=== PATIENT | male | born 1965 | race Caucasian/White ===

== ENCOUNTER → 2023-09-09 10:42 | Outpatient (BNVA) | payer BC, SELFPAY | PROVIDERS: Family Provider Family Medicine; PCP Family Medicine; Visit Provider Family Medicine | DX: Z51.81 Encounter for therapeutic drug level monitoring (principal); Z13.220 Encounter for screening for lipoid disorders; R53.81 Other malaise; R53.83 Other fatigue | CPT/HCPCS: 80053; 80061; 84403; 84439; 84443; 85025 ==

== ENCOUNTER → 2024-07-24 13:14 | Outpatient (BNVA) | payer BC, SELFPAY | PROVIDERS: Family Provider Family Medicine; PCP Family Medicine; Visit Provider Family Medicine | DX: R35.0 Frequency of micturition (principal); H53.139 Sudden visual loss, unspecified eye; Z51.81 Encounter for therapeutic drug level monitoring | CPT/HCPCS: 80053; 84153; 85025; 85651 ==

== ENCOUNTER 2024-08-13 14:01 | Outpatient (CLI) | payer BC, SELFPAY ==
--- NOTE | 2024-08-13 14:15 | USCV_ITS ---
Errol, Paul ([facility]) Age: 59 Gender: M : 1965 Exam Date: 08/13/2024 14:17 Ordering Phys: Art Reza MD Technologist: Exam [facility] Indication: tia BP: 120 / 70 HR: 79 Rhythm: Sinus Technical Quality: Adequate MEASUREMENTS (Male / Female) Normal Values 2D ECHO LV Diastolic Diameter PLAX 4.6 cm 4.2 - 5.9 / 3.9 - 5.3 cm IVS Diastolic Thickness 1.2 cm 0.6 - 1.0 / 0.6 - 0.9 cm IVS Systolic Thickness 1.6 cm LVPW Diastolic Thickness 1.3 cm 0.6 - 1.0 / 0.6 - 0.9 cm LVPW Systolic Thickness 1.9 cm LVOT Diameter 2.0 cm LV Ejection Fraction 2D Teich 37.2 % LV Ejection Fraction MOD 4C 67.3 % LV Ejection Fraction MOD 2C 64.8 % LV Ejection Fraction 2C AL 66.3 % LA Diameter 3.2 cm RA Systolic Volume 4C AL 41.7 ml RA Systolic Volume 4C MOD 40.8 ml Aorta at Sinotubular Diameter 2.8 cm IVC Diameter 2.4 cm M-MODE LA Ao Ratio MM 1.3 AV Cusp Separation MM 2.8 cm DOPPLER AV Peak Velocity 146.0 cm/s LVOT Peak Velocity 107.0 cm/s AV Area Cont Eq vti 2.9 cm squared AV Area Cont Eq pk 2.3 cm squared MV Peak Velocity 101.0 cm/s MV Area PHT 6.7 cm squared Mitral E to A Ratio 0.8 TV Peak Velocity 150.0 cm/s TR Peak Velocity 162.0 cm/s TR Peak Gradient 10.5 mmHg TV Peak E Velocity 84.0 cm/s FINDINGS Left Ventricle Left ventricle is normal in size. LV systolic fucntion is normal with EF of 55-60%. No regional wall motion abnromalities. Right Ventricle Normal in size and function Right Atrium Normal in size Left Atrium Normal in size Mitral Valve Structurally normal mitral valve. Mild mitral regurgitation. Aortic Valve Structurally normal aortic valve. No significant stenosis or regurgitation. Tricuspid Valve Insufficient TR jet to calculate RVSP Pulmonic Valve Not well visualized Pericardium Normal Aorta Normal in size IVC Appears to be normal CONCLUSIONS LV systolic function is normal with EF of 55-60% Mild mitral regurgitation No comparison studies are available. Garrett Boggs MD (Electronically Signed) Final Date: 25 August 2024 21:19 S
== END 2024-08-13 14:02 | disposition home or self-care (01) ==
PROVIDERS: PCP Family Medicine; Visit Provider Family Medicine
DX: G45.9 Transient cerebral ischemic attack, unspecified (principal); I34.0 Nonrheumatic mitral (valve) insufficiency
CPT/HCPCS: 80053; 84153; 85025; 85651; 93306

== ENCOUNTER 2025-02-07 16:45 | Emergency (ER) | payer BC, SELFPAY ==
--- OUTSIDE RECORDS SUMMARY | 2024-04-14 04:00 | XMS_ITS ---
Author Organization [facility] Address [address] [place] [address] Support Name Relationship Address , Bettye Errol Emergency Contact [address] [place] [phone] Unavailable Juan Jacobson Guarantor Unknown [phone] Care Team Providers Care Picking Crew Supervisor Name Role Phone Keny Vargas MD Primary Care Provider Cristiane Youssef Unavailable [phone] Migration, Provider Unavailable Unavailable REASON FOR VISIT EMR-Tin Encounters Encounter Location Date Provider Diagnosis Migrated_Facility 0 0 04/14/2024 Provider Migration Plan Of Treatment Medication Medication Name Sig Start Date Stop Date Notes oxyCODONE-Acetaminophen 10-325 MG Oral Tablet 1 Tablet Every 6 Hours PRN 04/02/2022 05/02/2022 [facility]* Morphine Sulfate 15 MG Tablet 1 Tablet Every 6 Hours PRN Oral 10/23/2020 11/22/2020 Cyclobenzaprine HCl 10 MG Tablet 1 Tablet Every Night PRN Oral 03/29/2022 04/28/2022 HYDROcodone-Acetaminophen 10-325 MG Oral Tablet 1 Tablet Every 6 Hours PRN 06/10/2021 07/10/2021 [facility]* tiZANidine HCl 4 MG Tablet 1 Three times a Day PRN Oral 11/28/2019 12/28/2019 Cialis 5 MG Tablet 1 Tablet As needed PRN Oral 03/29/2022 04/28/2022 Baclofen 10 MG Tablet 1 Tablet Four times a Day PRN Oral 11/28/2019 12/28/2019 Butrans 10 mcg/hour transdermal patch weekly 1 Patch Every week 04/02/2022 04/30/2022 *Reorder from [facility] for eRx and Interaction Alerts* Progress Notes * Juan JACOBSONDOB:1965 (60 yo M)Acc No.[id number]:04/14/2024 Patient: Jaun DALLAS :1965 A ge:59 Y S ex:Male Address:[address] [place] [address] [address] , [place] [phone] * Refills Stop Baclofen Tablet, 10 MG, Oral, 1 Tablet Four times a Day PRN Stop Cialis Tablet, 5 MG, Oral, 1 Tablet As needed PRN Stop Cyclobenzaprine HCl Tablet, 10 MG, Oral, 1 Tablet Every Night PRN Stop Morphine Sulfate Tablet, 15 MG, Oral, 1 Tablet Every 6 Hours PRN Stop tiZANidine HCl Tablet, 4 MG, Oral, 1 Three times a Day PRN Stop HYDROcodone-Acetaminophen 10-325 MG Oral Tablet, 1 Tablet Every 6 Hours PRN Stop oxyCODONE-Acetaminophen 10-325 MG Oral Tablet, 1 Tablet Every 6 Hours PRN Stop Butrans 10 mcg/hour transdermal patch weekly, 1 Patch Every week Subjective: * Chief Complaints: * E MR-Tin * * Date:
--- OUTSIDE RECORDS SUMMARY | 2024-04-15 04:00 | XMS_ITS ---
Author Organization [facility] Address [address] [place] [address] Support Name Relationship Address , Bettye Errol Emergency Contact [address] [place] [phone] Unavailable Juan Jacobson Guarantor Unknown [phone] Care Team Providers Care Associate Professor Of Biblical Studies Name Role Phone Keny Vargas MD Primary Care Provider Cristiane Youssef Unavailable [phone] Migration, Provider Unavailable Unavailable Allergies Allergen (clinical drug ingredient) Drug/Non Drug Allergy documented on EMR Reaction Allergy Type Onset Date Status Information temporarily unavailable Ultram Unknown Drug Allergy Active Information temporarily unavailable Tramadol headache Drug Allergy Active Information temporarily unavailable Wellbutrin Unknown Drug Allergy Active REASON FOR VISIT EMR-Tin Medications Medication SIG (Take, Route, Frequency, Duration) Notes Start Date End Date Status duloxetine *[facility] and Interaction Alerts* Active Simvastatin *Pick strength-f orm from [facility] for eRX* Active trazodone *[facility]Rx and Interaction Alerts* Active Social History Social History Additional Details Category Social Info Options Details Migrated Social History Migrated Social History Alcoholic beverages? - No, Currently on disability? - No, I am interested in quitting. - No, Smoking - 2 PPD, Smoking status (MU) - Current every day smoker, Working currently? - Yes Encounters Encounter Location Date Provider Diagnosis Migrated_Facility 0 0 04/15/2024 Provider Migration Plan Of Treatment No Information Progress Notes * Juan JACOBSONDOB:1965 (60 yo M)Acc No.[id number]:04/15/2024 Patient: Cordelia GREENJuan WHEELER :1965 A ge:59 Y S ex:Male Address:[address] [place] [address] [address] , [place] [address] Subjective: * Chief Complaints: * E MR-Tin * Medical History: Kidney stone, * Surgical History: Carpal tunnel surgery Elbow surgery Shoulder surgery * Family History: M igrated Family History: : Cancer. * Social History: M igrated Social History: M igrated Social History: Alcoholic beverages? - No, C urrently on disability? - No, I am interested in quitting. - No, S moking - 2 PPD, S moking status (MU) - Current every day smoker, W orking currently? - Yes. * Medications: T akingtrazodone , Notes to Pharmacist: *Reorder from [facility] for eRx and Interaction Alerts*Simvastatin , Notes to Pharmacist: *Pick strength-form from [facility] for eRX*duloxetine , Notes to Pharmacist: *Reorder from [facility] for eRx and Interaction Alerts*Taking trazodone , Notes to Pharmacist: *Reorder from [facility] for eRx and Interaction Alerts*Taking Simvastatin , Notes to Pharmacist: *Pick strength-form from [facility] for eRX*Taking duloxetine , Notes to Pharmacist: *Reorder from [facility] for eRx and Interaction Alerts* * Allergies: T ramadol: headache - AllergyWellbutrin: AllergyUltram: Allergy * * Date:
--- NOTE | 2025-02-07 16:25 | ECG_ITS ---
[facility] [employer] [facility] Test Date: 2025-02-07 Pat Name: Juan Norton (Lance) Department: Room: Gender: Male Guard Chief: : 1965 Requested By: Tariq Tinajero Order Number: [id number] Lisa MD: Garrett Boggs M.D. Measurements Intervals [place] Rate: 62 P: 84 VT: 164 QRS: 65 QRSD: 105 T: 42 QT: 387 QTc: 396 Interpretive Statements SINUS RHYTHM POSSIBLE LEFT ATRIAL ENLARGEMENT [-0.1mV P-WAVE IN V1/V2] No previous ECG available for comparison Electronically Signed On 02-09-2025 08:44:49 CDT by Garrett Boggs M.D. [email or web address] [id number]
--- NOTE | 2025-02-07 16:25 | CTR_ITS ---
THIS REPORT CONTAINS FINDINGS THAT MAY BE CRITICAL TO PATIENT CARE. The findings were verbally communicated by me to DR. MEENA GUIDRY via telephone conference at 4:52 PM CDT on 02/07/2025. The findings were acknowledged and understood. PROCEDURE INFORMATION: Exam: CT Head Without Contrast Exam date and time: 02/07/2025 4:31 PM Age: 60 years old Clinical indication: Stroke-like symptoms; Other: Weakness on left side; Additional info: Symptoms of acute stroke TECHNIQUE: Imaging protocol: Computed tomography of the head without contrast. Radiation optimization: All CT scans at this facility use at least one of these dose optimization techniques: automated exposure control; mA and/or kV adjustment per patient size (includes targeted exams where dose is matched to clinical indication); or iterative reconstruction. Other technique: STROKE PROTOCOL was implemented. COMPARISON: No relevant prior studies available. RADIATION DOSE METRICS: Total DLP (mGy-cm): 1166.58 FINDINGS: Brain: Mild loss of right insular hurtado-white matter distinction. Focal loss of hurtado-white matter differentiation right middle frontal gyrus (series 14, image 34; series 13, image 45). No intracranial hemorrhage. No shift of midline structures. No mass. Ventricles: No hydrocephalus or evidence of increased intracranial pressure. Paranasal sinuses: Visualized sinuses are unremarkable. No fluid levels. Mastoid air cells: Visualized mastoid air cells are well aerated. Bones: Unremarkable. No acute fracture. Soft tissues: Unremarkable. Vasculature: Hyperdense right MCA M1 segment (series 5, images 18-21). CT/CT head thrombolytic 23823 IMPRESSION: 1. Right MCA M1 segment intraluminal thrombus. 2. Acute right insular cortical infarction. ASSESSMENT: ASPECTS ([place] Stroke Program Early CT Score) is 8.
[2025-02-07 16:37] VITALS: BP 118/83; PULSE 67; RESP 16; TEMP 37.1; O2SAT 97; BMI 22.7
--- NOTE | 2025-02-07 16:40 | ED_ITS ---
HPI - Neuro Symptoms/Deficit 2 General: Chief Complaint: Neuro Symptoms/Deficit Stated Complaint: stroke alert History of Present Illness: 60-year-old male presents to the emergen cy room via EMS. Patient is flaccid on the left side he has sudden loss of function and speech at 1550 witnessed by coworkers. 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 EMS brought the patient to the emergency room on arrival he is obviously flaccid on the left side they first met the patient in the CT suite. Associated symptoms: Reports chest pain Related Data Home Medications ?Medication ?Instructions ?Recorded ?Confirmed trazodone 50 mg tablet 50 mg PO DAILY 05/04/2201/18 Held on 01/12/24. Instructions: Adverse Reaction Previous Rx's ?Medication ?Instructions ?Recorded tadalafil 20 mg tablet 20 mg PO DAILY PRN sexual ac tivity 01/12/24 #10 tabs aspirin 81 mg tablet,delayed 81 mg PO DAILY #30 tabs 0 07/24/24 release buspirone 5 mg tablet 5 mg PO BID #60 tabs 5 citalopram 20 mg tablet 20 mg PO DAILY #30 tabs 01/18 03/14 Allergies Allergy/AdvReac Type Severity Reaction Status Date / Time bupropion (From Wellbutrin) Allergy ALGY-Hives Verified 05/04/22 16:09 Review of Systems 2 Card: Reports: chest pain Resp: Reports: dyspnea GI: Reports: abdominal pain PFS ED 2 PFSH: Surgical History History of skin graft Bilateral legs - 2012 History of shoulder surgery History of carpal tunnel release Bilaterally History of lithotripsy Mendoza - 2014 History of lumbar surgery L4-L5-S1 fusion - 06/08 - Janusz Social History Smoking and tobacco/nicotine status: current every day tobacco/nicotine user cigarettes Packs smoked per day: 1 [ Other cigarette details: Just under a ppd] NIH stroke score 2 NIHSS: Level Of Consciousness - 1a: 2 Level Of Consciousness Questions - 1b: Both Correct Level Of Consciousness Commands - 1c: Both Correct Best Gaze - 2: Forced Deviation Visual [place] - 3: Complete Hemianopia Facial Palsy - 4: Minor Paralysis Motor Arm Right - 5: No Drift Motor Arm Left - 5: No Effort Against [place] Motor Leg Right - 6: No Drift Motor Leg Left - 6: No Effort Against [place] Limb Ataxia - 7: Present In Two Limbs S ensory - 8: Mild To Moderate Loss Best Language - 9: No Aphasia Dysarthia - 10: Mild/Moderate Dysarthia Extinction And Inattention - 11: 2 Score: Total Score: 19 Physical Exam 2 Const: GENERAL APPEARANCE: cooperative ORIENTATION/CONSCIOUSNESS: Yes awake HENMT: COMMON NORMALS: normocephalic, atraumatic and hearing grossly normal bilaterally HEAD & SCALP: normocephalic and atraumatic Resp: COMMON NORMALS: normal respiratory effort, No retractions, No use of accessory muscles and clear to auscultation bilaterally AUSCULTATION: clear to auscultation bilaterally Cardio: COMMON NORMALS: regular rate, regular rhythm and No murmurs present (Cardio) RATE: regular rate RHYTHM: regular rhythm GI: COMMON NORMALS: Soft to palpation and No hepatosplenomegaly present A USCULTATION: Yes normoactive bowel sounds PALPATION: Yes Soft to palpation, No Tenderness to palpation present (GI), No Guarding due to palpation present (GI) and Yes No hepatosplenomegaly present Extremity: COMMON NORMALS: normal to inspection, capillary refill normal, no clubbing, cyanosis or edema, no calf tenderness and no pedal edema Neuro: OTHER: See NIH scoring Course 2 Vital Signs: Vital signs: Vital Signs Temperature 98.8 F 02/07/25 16:59 Pulse Rate 70 02/07/25 18:07 Respiratory Rate 17 02/07/25 18:05 Blood Pressure 151/80 02/07/25 18:07 Pulse Oximetry 97 02/07/25 18:07 Oxygen Delivery Me thod Room Air 02/07/25 18:05 MDM - Neuro Symptoms/Deficit Medical Decision Making Patient has an NIH of 19 no bleed on the CT discussed risks and benefits with the patient he wishes to proceed TNKase given. The initial CT without contrast shows a right MCA a M1 segment thrombus. CTA head and neck being done at the time of this dictation. Anticipate transfer to higher level of care for possible embolectomy. Patient has already had significant improvement he now has function in his left arm and leg although they are still weak he still has his forced gaze deviation and hemianopsia. His speech is improved he still has a facial droop and still has significant extinction. We have consulted Dr. Waters who is on-call for stroke at [facility] they have accepted the patient [facility] will be transferring. He is stable at this time. CTA showed ulcerated plaque with suspected thrombus in the right carotid Interestingly he has been having intermittent vision changes and he had been receiving a outpatient workup from his primary care doctor. He is taking aspirin daily but is not on any statin or Plavix. Medical Records I reviewed the patient's medical records. Lab Data I reviewed the patient's lab results. 02/07/25 16:16 02/07/25 16:[address] 02/07/25 16:25 IMPRESSION: 1. Right MCA M1 segment intraluminal thrombus. 2. Acute right insular cortical infarction. ASSESSMENT: ASPECTS ([place] Stroke Program Early CT Score) is 8. Head/Neck CTA 02/07/25 16:43 IMPRESSION: 1. Right MCA M1 segment occlusion, with proximal M2 branch reconstitution, reduced peripheral collateral filling. 2. Right MCA territory edema consistent with infarction or reperfusion edema (tPA given, with reportedly good clinical response). ASSESSMENT: ASPECTS ([place] Stroke Program Early CT Score) is 3 (please see above comment). IMPRESSION: 1. Near completely occlusive intraluminal thrombus in the proximal right internal carotid artery. 2. Moderate stenosis left vertebral artery origin. 3. Soft tissue enhancing nodule posterior right thyroid gland. Soccer candle nodule versus ectopic thyroid versus parathyroid lesion. Follow-up recommended. COMMENTS: Consistent with the [place] [employer]'s Incidental Findings Committee white paper (J Am Star Radiol 2015): In patients aged 35 years and older with an incidental thyroid nodule equal to or greater than 1.[address], MRI or extrathyroidal US, further evaluation with dedicated thyroid US is recommended for patients with normal life expectancy and without comorbidities. For smaller nodules without suspicious features, no further evaluation or follow up is recommended. REFERENCES: NASCET CRITERIA. The degree of stenosis in the cervical segment of the internal carotid artery is based on NASCET criteria. Normal is no stenosis. Mild is less than 50% stenosis. Moderate is 50-69% stenosis. Severe is 70% to 99% stenosis. Total occlusion is no detectable patent lumen. Laboratory Results WBC 16.95 10^3/uL (3.29-11.43) H 02/07/25 16:16 RBC 4.63 10^6/uL (3.85-5.65) 02/07/25 16:16 Hgb 14.40 g/dL (11.27-16.99) 02/07/25 16:16 Hct 42.6 % (37-53) 02/07/25 16:16 MCV 92.0 fl (82-101) 02/07/25 16:16 MCH 31.1 pg (27-33) 02/07/25 16:16 MCHC 33.8 g/dL (30-55) 02/07/25 16:16 RDW 13.2 % (12.1-15.1) 02/07/25 16:16 Plt Count 318 10^3/cmm (157-399) 02/07/25 16:16 MPV 9.6 fL (7.4-10.4) 02/07/25 16:16 Neut % (Auto) 83.7 % 02/07/25 16:16 Lymph % (Auto) 10.9 % 02/07/25 16:16 [place] % (Auto) 4.5 % 02/07/25 16:16 Eos % (Auto) 0.2 % 02/07/25 16:16 Baso % (Auto) 0.2 % 02/07/25 16:16 Neut # (Auto) 14.19 10^3/uL (1.8-7.7) H 02/07/25 16:16 Lymph # (Auto) 1.8 10^3/uL (0.8-4.8) 02/07/25 16:16 [place] # (Auto) 0.8 10^3/uL (0.2-0.9) 02/07/25 16:16 Eos # (Auto) 0.0 10^3/uL (0.0-0.8) 02/07/25 16:16 Baso # (Auto) 0.0 10^3/uL (0.0-0.1) 02/07/25 16:16 Nucleated RBC % (auto) 0 % 02/07/25 16:16 Nucleated RBCs # 0.0 /100WBC 02/07/25 16:16 PT 12.60 SECONDS (12.1-14.9) 02/07/25 16:16 INR 0.89 (0.8-1.2) 02/07/25 16:16 APTT 28.6 SECONDS (23.9-36.7) 02/07/25 16:16 Sodium 140 mmol/L (136-145) 02/07/25 16:16 Potassium 3.7 mmol/L (3.5-5.1) 02/07/25 16:16 Chloride 103 mmol/L (98-107) 02/07/25 16:16 Carbon Dioxide 22 mmol/L (22-29) 02/07/25 16:16 Anion Gap 18.7 (5-19) 02/07/25 16:16 BUN 18 mg/dL (6-20) 02/07/25 16:16 Creatinine 2.3 mg/dL (0.7-1.2) H 02/07/25 16:16 GFR Calculation 29.4 mL/min (90-130) L 02/07/25 16:16 Glucose 97 mg/dL (65-115) 02/07/25 16:16 POC Glucose 102 mg/dL (70-110) 02/07/25 17:04 Calculated Osmolality 292 mOsm/kg (285-295) 02/07/25 16:16 Calcium 11.7 mg/dL (8.5-10.5) H 02/07/25 16:16 Total Bilirubin 0.7 mg/dL (0.15-1.2) 02/07/25 16:16 AST 16 U/L (0-40) 02/07/25 16:16 ALT 10 U/L (0-41) 02/07/25 16:16 Alkaline Phosphatase 95 U/L (40-130) 02/07/25 16:16 Total Protein 7.5 g/dL (6.6-8.7) 02/07/25 16:16 Albumin 4.6 g/dL (3.5-5.2) 02/07/25 16:16 Globulin 2.9 g/dL (1.3-4.6) 02/07/25 16:16 All radiology interpretation(s) finalized by discharge Discharge Plan Discharge Patient Disposition: Xfer Short-Term Hosp Clinical Impression: Acute cerebrovascular accident (CVA) due to embolism of right middle cerebral artery Condition: Stable Referrals: Art Reza MD [Primary Care Provider, Family Practice] Print Language: Israeli Coding Level of Care Code ED Air Conditioning Installer for Evelyn Martins
[2025-02-07] MEDS: tenecteplase 50mg Kit (STROKE) 50 MG (16:41)
--- NOTE | 2025-02-07 16:43 | CTR_ITS ---
THIS REPORT CONTAINS FINDINGS THAT MAY BE CRITICAL TO PATIENT CARE. The findings were verbally communicated by me to DR. MEENA GUIDRY via telephone conference at 5:32 PM CDT on 02/07/2025. The findings were acknowledged and understood. PROCEDURE INFORMATION: Exam: CTA Head With Contrast, Arteriography Exam date and time: 02/07/2025 4:48 PM Age: 60 years old Clinical indication: Other: Left side weakness; Additional info: Acute CVA TECHNIQUE: Imaging protocol: Computed tomographic angiography of the head with contrast. Exam focused on the arteries. 3D rendering (Not supervised by radiologist): MIP and/or 3D reconstructed images were created by the technologist. Radiation optimization: All CT scans at this facility use at least one of these dose optimization techniques: automated exposure control; mA and/or kV adjustment per patient size (includes targeted exams where dose is matched to clinical indication); or iterative reconstruction. Contrast material: OMNI 350; Contrast volume: 100 ml; Contrast route: INTRAVENOUS (IV); COMPARISON: CT head thrombolytic [id number] 02/07/2025 4:31 PM RADIATION DOSE METRICS: Total DLP (mGy-cm): 556.77 FINDINGS: ANTERIOR CIRCULATION: Right internal carotid artery: Intracranial segment is patent with no significant stenosis. No aneurysm. Right middle cerebral artery: Right MCA M1 segment occlusion, with proximal M2 branch reconstitution. Right anterior cerebral artery: No occlusion or significant stenosis. No aneurysm. Left internal carotid artery: Intracranial segment is patent with no significant stenosis. No aneurysm. Left middle cerebral artery: No occlusion or significant stenosis. No aneurysm. Left anterior cerebral artery: No occlusion or significant stenosis. No aneurysm. POSTERIOR CIRCULATION: Right vertebral artery: No occlusion or significant stenosis. No aneurysm. Left vertebral artery: No occlusion or significant stenosis. No aneurysm. Basilar artery: No occlusion or significant stenosis. No aneurysm. Right posterior cerebral artery: No occlusion or significant stenosis. No aneurysm. Left posterior cerebral artery: No occlusion or significant stenosis. No aneurysm. Brain: Increased cytotoxic edema in the right cerebral hemisphere, now involving the caudate head, putamen, anterior limb internal capsule, entire insula, and overlying cortex Ventricles: No hydrocephalus. Paranasal sinuses: Mild bilateral maxillary sinus mucosal thickening. Bones/joints: No acute abnormality. No acute fracture. Soft tissues: Unremarkable. PROCEDURE INFORMATION: Exam: CTA Neck With Contrast Exam date and time: 02/07/2025 4:48 PM Age: 60 years old Clinical indication: Other: Left side weakness; Additional info: Acute CVA TECHNIQUE: Imaging protocol: Computed tomographic angiography of the neck with contrast. Exam focused on the cervical segments of the vasculature. 3D rendering (Not supervised by radiologist): MIP reconstructed images were created by the technologist. Radiation optimization: All CT scans at this facility use at least one of these dose optimization techniques: automated exposure control; mA and/or kV adjustment per patient size (includes targeted exams where dose is matched to clinical indication); or iterative reconstruction. Contrast material: OMNI 350; Contrast volume: 100 ml; Contrast route: INTRAVENOUS (IV); COMPARISON: CT head thrombolytic [id number] 02/07/2025 4:31 PM RADIATION DOSE METRICS: Total DLP (mGy-cm): 556.77 FINDINGS: Right common carotid artery: No stenosis. No dissection or occlusion. Right internal carotid artery: Near completely occlusive intraluminal filling defect in the proximal right internal carotid artery. Right external carotid artery: No occlusion or stenosis of the origin. Left common carotid artery: Left common carotid artery bifurcation calcified and uncalcified plaque, approximately 30% NASCET stenosis. Left internal carotid artery: No stenosis of the extracranial segment. No dissection or occlusion. Left external carotid artery: No occlusion or stenosis of the origin. Right vertebral artery: No stenosis. No dissection or occlusion. Left vertebral artery: Moderate stenosis left vertebral artery origin. Soft tissues: Normal. No significant soft tissue swelling. Bones/joints: Posterior longitudinal ligamentous ossification at the C5 level. No acute fracture. Moderate right C3-C4 primary facet osteoarthritis. Mild left C4-C5 primary facet osteoarthritis. Pharynx: Bilateral palatine tonsillar benign calcified tonsilloliths. Thyroid: Enhancing nodule posterior to the right thyroid lobe and not definitely attached to the gland. This measures approximately 10.7 x 7.[address]/CT angio headneck* 73753/21227 IMPRESSION: 1. Right MCA M1 segment occlusion, with proximal M2 branch reconstitution, reduced peripheral collateral filling. 2. Right MCA territory edema consistent with infarction or reperfusion edema (tPA given, with reportedly good clinical response). ASSESSMENT: ASPECTS ([place] Stroke Program Early CT Score) is 3 (please see above comment). IMPRESSION: 1. Near completely occlusive intraluminal thrombus in the proximal right internal carotid artery. 2. Moderate stenosis left vertebral artery origin. 3. Soft tissue enhancing nodule posterior right thyroid gland. Soccer candle nodule versus ectopic thyroid versus parathyroid lesion. Follow-up recommended. COMMENTS: Consistent with the [employer]'s Incidental Findings Committee white paper (J Am Star Radiol 2015): In patients aged 35 years and older with an incidental thyroid nodule equal to or greater than 1.[address], MRI or extrathyroidal US, further evaluation with dedicated thyroid US is recommended for patients with normal life expectancy and without comorbidities. For smaller nodules without suspicious features, no further evaluation or follow up is recommended. REFERENCES: NASCET CRITERIA. The degree of stenosis in the cervical segment of the internal carotid artery is based on NASCET criteria. Normal is no stenosis. Mild is less than 50% stenosis. Moderate is 50-69% stenosis. Severe is 70% to 99% stenosis. Total occlusion is no detectable patent lumen.
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
[2025-02-07 16:59] VITALS: BP 118/83; PULSE 66; RESP 16; TEMP 37.1
[2025-02-07 16:59] LABS: Hematocrit 42.6 % (37-53); Hemoglobin 14.40 g/dL (11.27-16.99); Mean Corpuscular HGB Conc 33.8 g/dL (30-55); Mean Corpuscular Hemoglobin 31.1 pg (27-33); Mean Corpuscular Volume 92.0 fl (82-101); Nucleated Red Blood Cells % 0 %; Platelet Count 318 10^3/cmm (157-399); Red Blood Count 4.63 10^6/uL (3.85-5.65); White Blood Count 16.95 10^3/uL (3.29-11.43)
--- OUTSIDE RECORDS SUMMARY | 2025-02-07 16:59 | XMS_ITS | Patient Health Record ---
Author Organization [facility] Address [address] [place] [address] Support Name Relationship Address , Bettye Errol Emergency Contact [address] [place] [address] Unavailable Juan Norton Guarantor Unknown [phone] Care Team Providers Care Flight Operations Dispatch Clerk Name Role Phone Keny Vargas MD Primary Care Provider Cristiane Youssef Unavailable [phone] Migration, Provider Unavailable Unavailable Allergies Allergen (clinical drug ingredient) Drug/Non Drug Allergy documented on EMR Reaction Allergy Type Onset Date Status Information temporarily unavailable Ultram Unknown Drug Allergy Active Information temporarily unavailable Tramadol headache Drug Allergy Active Information temporarily unavailable Wellbutrin Unknown Drug Allergy Active Reason For Referral No Information Medications Medication SIG (Take, Route, Frequency, Duration) Notes Start Date End Date Status oxyCODONE HCl 15 MG Tablet 1 tablet Orally every 6 hrs; Duration: 7 days *Not to be taken at the same time as the [place] and Percocet that was RX by pain management* 07/03/2020 Active oxyCODONE HCl 15 MG Tablet 1 tablet as needed Orally every 4 hrs; Duration: 7 days 06/25/2020 Active [facility]ulox[facility]* Active Simvastatin *Pick strength-form from [facility] for eRX* Active trazodone [facility]s* Active dexAMETHasone Jose Alfredo-Darryl stockton Social History Social History Depression Screening Social Info Question Answer Notes PHQ-9 Little interest or pleasure in doing thin gs Several days Feeling down, depressed, or hopeless Several day s Trouble falling or staying asleep, or sleeping t oo much Several days Feeling tired or having little energy Several da ys Poor appetite or overeating Several days Feeling bad about yourself, or that you are a failure, or have let yourself or your family down Several days Trouble concentrating on thi ngs, such as reading the newspaper or watching television Several days Moving or speaking so slowly that other people could have noticed. Or the opposite ? being so fidgety or restless that you have been moving around a lot more than usual Not at all Thoughts that you would be b sang off , or of hurting yourself in some way Not at all Total Score 7 Interpretation Mild Depression Additional Details Category Social Info Options Details Migrated Social History Migrated Social History Alcoholic beverages? - No, Currently on disability? - No, I am interested in quitting. - No, Smoking - 2 PPD, Smoking status (MU) - Current every day smoker, Working currently? - Yes Section Notes: patient refused patient refused patient refused patient refused patient refused patient refused patient refused Problems Problem Type SNOMED Code ICD Code Onset Dates Problem Status W/U Status Risk Notes Problem Lumbar spondylosis (952770433) Lumbar spondylosis (M47.816) Active confirmed Problem Degeneration of lumbar intervertebral disc (18513185) Degeneration of lumbar or lumbosacral intervertebral disc (M51.37) Active confirmed Problem Arthropathy of spinal facet joint (969489240) Facet arthropathy (M47.819) Active confirmed Encounters Encounter Location Date Provider Diagnosis Migrated_Facility 0 0 04/14/2024 Provider Migration Migrated_Facility 0 0 04/15/2024 Provider Migration Plan Of Treatment Pending Test Test Name Order Date Prothrombin Time 30438 06/16/2020 ABORh 06290, 91398 06/16/2020 Antibody Screen 29169 06/16/2020 Basic Metabolic Panel (BMP) 31004 2019 Basic Metabolic Panel (BMP) 28931 2019 CBC w\ Auto Diff 69065 06/16/2020 Partial Thromboplastin Time 40519 2019 CBC Reflex Man Diff 04340, 60704 020 Chest PA/Lat-40997 06/16/2020 Chest PA/Lat-21784 06/16/2020 Lumbosacral Spine AP/Lat-98225 0 Lumbosacral Spine AP/Lat-36810 0 Lumbosacral Spine AP/Lat-57615 1 Lumbosacral Spine AP/Lat-16955 1 WBC Auto Diff--08375 06/18/2020 BB ABORH-78549,98264 06/16/2020 zzzFluoro >1h4 06/18/2020 COVID 19 PCR--21783 06/16/2020 Insurance Providers Payer Name Payer Address Payer Phone Subscriber Number Group Number Insured Name Patient Relationship to Insured Coverage Start Date Coverage End Date [employer] [address] [place] [address] [id number] Juan Norton Self - patient is the insured Medical (General) History Medical History History ICD Code kidney stones Surgical History Surgery Date(Month/Year) carpal tunnel release shoulder arthroscopy lumbar fusion 05/2020 Carpal tunnel surgery Elbow surgery Shoulder surgery Hospitalization History Reason Date(Month/Year) see above list
[2025-02-07 17:10] LABS: Partial Thromboplastin Time 28.6 SECONDS (23.9-36.7)
[2025-02-07 17:14] LABS: INR 0.89 (0.8-1.2); Prothrombin Time 12.60 SECONDS (12.1-14.9)
[2025-02-07 17:15] LABS: Alanine Aminotransferase 10 U/L (0-41); Albumin Level 4.6 g/dL (3.5-5.2); Alkaline Phosphatase 95 U/L (40-130); Anion Gap 18.7 (5-19); Aspartate Amino Transferase 16 U/L (0-40); Blood Urea Nitrogen 18 mg/dL (6-20); Calcium 11.7 mg/dL (8.5-10.5); Carbon Dioxide 22 mmol/L (22-29); Chloride 103 mmol/L (98-107); Globulin 2.9 g/dL (1.3-4.6); Glucose 97 mg/dL (65-115); Osmolality Calculated 292 mOsm/kg (285-295); Potassium 3.7 mmol/L (3.5-5.1); Sodium 140 mmol/L (136-145); Total Protein 7.5 g/dL (6.6-8.7)
--- NOTE | 2025-02-07 17:15 | P.PNCC_ITS ---
Stroke Alert Activation ED Arrival Date: 02/07/25 ED Arrival Time: 16:37 ED Physican at Bedside: 16:37 Last Known Normal/at Baseline: < 1 hour ago Other Last Known Well Infomation: Stroke team was pretty activated by EMS and Dr. Soto preloaded the patient's information and had the CT scan open and ready when patient arrived at 1637. He had observed onset of left-sided weakness at 1550 and EMS brought him directly to the ED and he was taken directly to CAT scan. All of his information was preloaded, he was examined on the way to CT and it was obvious that he had a dense left hemiplegia with right gaze preference and dysarthric speech and a high NIH stroke scale score. His blood pressure was within reasonable limits, blood sugar performed stat by fingerstick was within range and the patient gave informed consent. TNK was given at 1641. The patient is a smoker. He smokes about a pack a day. He had been having episodes of visual obscuration and was scheduled for Doppler ultrasound of the carotids but had not been done yet. With occlusion of the right middle cerebral artery at M1 with a long lesion extending beneath the temporal lobe. His CTA shows a very rough ulcerated lesion at the takeoff of the right carotid artery. Stroke Alert Activated by: EMS Stroke Alert Activation Time: 16:17 Stroke MD @ Bedside Time: 16:17 NIH Stroke Scale Time: 16:45 NIH stroke score NIHSS: Level Of Consciousness - 1a: 0 Level Of Consciousness Questions - 1b: Both Correct Level Of Consciousness Commands - 1c: Both Correct Best Gaze - 2: Partial Gaze Palsy Visual [place] - 3: Partial Hemianopia Facial Palsy - 4: Partial Paralysis Motor Arm Right - 5: No Drift Motor Arm Left - 5: Effort Against [place] Motor Leg Right - 6: No Drift Motor Leg Left - 6: Drift Limb Ataxia - 7: Absent Sensory - 8: Mild To Moderate Loss Dysarthia - 10: Mild/Moderate Dysarthia Extinction And Inattention - 11: 1 (Sensory deficit) Stroke Alert Data/Treatment Time to CT of Head: 16:25 CT Results Time: 16:54 CT Impression: Brain: Mild loss of right insular hurtado-white matter distinction. Focal loss of hurtado-white matter differentiation right middle frontal gyrus (series 14, image 34; series 13, image 45). No intracranial hemorrhage. No shift of midline structures. No mass. Ventricles: No hydrocephalus or evidence of increased intracranial pressure. Paranasal sinuses: Visualized sinuses are unremarkable. No fluid levels. Mastoid air cells: Visualized mastoid air cells are well aerated. Bones: Unremarkable. No acute fracture. Soft tissues: Unremarkable. Vasculature: Hyperdense right MCA M1 segment (series 5, images 18-21). CT/CT head thrombolytic 62963 IMPRESSION: 1. Right MCA M1 segment intraluminal t hrombus. 2. Acute right insular cortical infarc tion. ASSESSMENT: ASPECTS ([place] Stroke Program Early CT Score) is 8. Dictated By: Josh Young MD Signed By: Josh Young MD Signed Date/Time: 02/07/25 1654 DD/ 1631 Stroke Risk Factors: hypertension and smoker tPA Started Time: tPA Started - Time: 16:41 tPA Admin Prior to Arrival: No Patient & Family Educated on: Cause of Stroke, Risk Factors, Treament Plan, Stroke Education Booklet and tPA Risks/Benefits Other Patient & Family Education: I reviewed the findings from his CT head and CTA with the patient, his and daughter. We reviewed the stroke book. Plan follow-up after hospital discharge. He will be transferred to [facility] for potential embolectomy. Other Information: The patient is rapidly improving. On arrival he had flaccid left hemiplegia, strong gaze preference to the right that could not be overcome and dense left hemisensory and left visual field defect. Within 5 minutes of his bolus, he was already showing signs of improvement but he is still significantly weak on the left, densely numb and has mild inattention toward the left. Critical Care Time Critical Care Time: 30 - 74 mins A&P Assessment and plan 1. Acute cerebrovascular accident (CVA) due to embolism of right middle cerebral artery: I reviewed Dr. Reza's notes. This patient had amaurosis fugax in the right eye several times in early July and Dr. Reza ordered a CT angiogram of the head and neck, and echocardiogram and other workup and the patient did not have it done. He returned in December with similar symptoms. He now presents with dense right middle cerebral artery stroke with visible clot on his CT and CT angiogram demonstrating a very large ulcerated lesion in the right carotid artery at its takeoff. Although he is improving rapidly, he needs to have right carotid endarterectomy as soon as possible. He may need stent combined with thrombectomy. Dr. Soto has already arranged for the patient to be transferred to [facility] for definitive treatment and the family is aware. I will need to see the patient in follow-up after discharge. 2. Right-sided extracranial carotid artery stenosis: Plan: Transfer for embolectomy and possibly carotid endarterectomy. PDMP PDMP Reviewed: Not Reviewed Coding Level of Care Code Acute Code for [facility] Fwd Diagnoses Acute cerebrovascular accident (CVA) due to embolism of right middle cerebral artery I63.411 Right-sided extracranial carotid artery stenosis I65.21
[2025-02-07 17:27] VITALS: BP 151/80; PULSE 65; RESP 16
--- NOTE | 2025-02-07 17:42 | PC.NURSE ---
report given to MARII Ayers [facility] in [place], [place]. report number: Room: IR
[2025-02-07] MEDS: LORazepam 1 MG/0.5 ML injection 2 MG (17:55)
[2025-02-07 18:05] VITALS: BP 151/80; PULSE 72; RESP 17; O2SAT 98
--- NOTE | 2025-02-07 18:06 | PC.NURSE ---
report given to [employer] crew @1755, pt states feeling anxious, unable to tolerate laying on back; per verbal order of Dr. Soto to override 2mg Ativan, IVP. see MAR
[2025-02-07 18:07] VITALS: BP 151/80; PULSE 70; O2SAT 97
--- NOTE | 2025-02-07 18:07 | PC.NURSE ---
[employer] departure @2636
[2025-02-07] MEDS: iohexol 350 mg/mL 500 mL Btl (per mL) IV (20:18)
== END 2025-02-07 18:34 | disposition short-term general hospital (02) ==
PROVIDERS: Emergency Provider Family Medicine; PCP Family Medicine
DX: I63.411 Cerebral infarction due to embolism of right middle cerebral artery (principal); F17.210 Nicotine dependence, cigarettes, uncomplicated
CPT/HCPCS: 36416; 70450; 70496; 70498; 80053; 82962; 85025; 85610; 85730; 93005; 99285; 99291; J2060; J3101

== ENCOUNTER → 2025-05-20 10:00 | Outpatient (BNVA) | payer BC, SELFPAY | PROVIDERS: PCP Family Medicine; Visit Provider Family Medicine | DX: Z51.81 Encounter for therapeutic drug level monitoring (principal); Z13.6 Encounter for screening for cardiovascular disorders | CPT/HCPCS: 80053; 80061; 85025 ==